=== PATIENT | female | born 1995 | race Two or more races ===

== ENCOUNTER 2021-03-07 18:06 | Emergency (ER) | payer MEDICAID, OTHER ==
[~2021-03-07] VITALS: Ht 154.9 cm; Wt 86.2 kg
[2021-03-07 21:58] VITALS: BP 136/95
== END 2021-03-07 22:28 | disposition home or self-care (01) ==
LOC: ER 18:07
DX: H60.91 Unspecified otitis externa, right ear (principal); R50.9 Fever, unspecified; J02.9 Acute pharyngitis, unspecified; E66.9 Obesity, unspecified; Z68.39 Body mass index [BMI] 39.0-39.9, adult